=== PATIENT | female | born 1965 | race Caucasian/White ===

== ENCOUNTER 2017-10-17 13:00 | Outpatient (RCR) | payer BC, SELFPAY ==
--- NOTE | 2017-09-26 14:08 | IE_ITS ---
Date: September 26, 2017 Referring: Harry Ware MD M.D. Diagnosis: S/P L Hip scope P.T. Diagnosis: Difficulty walking, difficulty changing positions. 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 She states that for the past 10 years or so she has been limited by back pain, but has recently also developed some severe hip pain over the course of the last 4 years. This has been progressively worse to the point where she was barely able to walk. 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 She received a repair of the acetabular labrum on the L side yesterday and has been told to pursue PT with a strict protocol to follow. She is also awaiting a back surgery that cannot occur until after she loses a few more pounds and gets below 200. Pain Ratin/10 Prior Level of Function: Constant falls with walking limitations. Current Level of Function: She is walking with Lofstrand crutches bilaterally and has mild instability. Previous Treatment: Nothing. Social: She lives in [place] with her . Comorbidities: History of herniated disc, RA. Medications: Gabapentin, oxycodone, an allergy medication and a water medication that she cannot recall the name of. Quality of Life: __X__ Good Standardized Measures: LEFS score: __93%__ OBJECTIVE: Posture: In standing pt demonstrates a significant WB bias onto the RLE. She has bilateral Lofstrand crutches sized appropriately. Gait: Ambulates with a 3 point gait pattern, applying limited WB through the L. She is taken through a gait analysis with an improvement of her walking strategy, as well as reinforcement of how much weight 50% of her body weight is by placing her LLE on a scale and applying 100 lbs of pressure. Palpation: Surgical incision site is covered with a heavy gauze. No notable streaking or redness appearing out from the gauze site. She is directly tender over the incision site. ROM: Measurements for this pt are as follows: Hip flexion R side 110 degrees, 90 L Hip ER 45 R, 15 L Hip IR 35 R, 20 L Hip abduction 45 R, 25 L Strength: Measurements for this pt are as follows: Hip flexion 4+/5 R, 3/5 L Quads 5/5 R, 3+/5 L Hamstrings 5/5 R, 3+/5 L Dorsiflexion 5/5 bilaterally Plantar flexion 5/5 bilaterally Glute medius 4-/5 R, 2+/5 L Neuro: Pt intact to light touch and sensation through LE dermatomes. Motor control appears intact through associated myotomes and pt demonstrates appropriate proprioception and kinesthetic awareness. Special Tests: None at this time due to acuity. Treatment: IE and assessment of functional mobility, as well as training in a formal exercise program. Pt demonstrated verbal acknowledgment and technique demonstration. IE: [id number] Direct treatment time: 45 min Total treatment time: 45 min direct pt care ASSESSMENT: Patient is a 52-year-old female with a history of good physical health, referred for PT services with the diagnosis of being s/p 1 day L side acetabular labrum repair. Patient presents with clinical signs and symptoms consistent with this diagnosis, as demonstrated by the following impairment level findings: 3 point gait pattern with use of Lofstrand crutches and 50% WB through the L, decreased strength L side LE musculature, decreased hip ROM through the L side hip. Impairments are contributing to the following functional limitations:difficulty with gait instability with gait and virtually no involvement in ADLs in the house. Patient is assessed as: __X__ Moderate [id number] complexity, based on the following : History: (list): High BMI, RA, herniated disc in the back. See comorbidities and social history. Examination: (list): Antalgic gait pattern, strength and instability issues through the L side hip, ROM deficits through the L side hip See above for functional limitations and impairments. Presentation: X Evolving Decision-Making: X Moderate complexity 93 % Disability based on LEFS __X__ Patient requires skilled PT intervention to remediate the above functional limitations to return to: __X__ Premorbid level of function Prognosis: __X__ Good as evidence suggests improvement of functional abilities with compliance to a detailed HEP tailored to her diagnosis and following through with PT intervention. STG: __2__ weeks. 1. Pt will be independent in HEP both verbally and with ideal technique demonstration. LTG: __10__ weeks. 1. Pt able to walk up to 1 mile with normalized gait mechanics independent of assistive device. 2. Pt unlimited involvement involvement in all premorbid ADLs and home activities. PLAN: Patient to be seen 2 x per week, for 10 weeks, adjusting frequency of visits per patient symptoms and response to treatment. Treatment to include: X Manual therapy - [id number]: for enhancing muscle extensibility and improving joint arthrokinematics. X Therapeutic exercise - [id number] tactile cues, verbal education and advanced movement correctives for establishing muscle symmetry and return of stability motor control through the core and pelvic girdle, allowing for improving of strength and stability through the LLE as well. X Aquatic therapy program may be utilized for gravity minimized mobility and furthering her conditioning. X U/S and e-stim may be available for pain modulation as necessary. X Neuromuscular re-education: may be advanced with proprioceptive retraining for balance improvements. The pt will be monitored for compliance to HEP and status will be updated accordingly. Plan may be modified as symptoms dictate. Thank you for this referral. Please do not hesitate to contact me with any questions or concerns regarding this patient's plan of care. OFE/raj
--- NOTE | 2017-10-01 14:44 | PTTR_ITS ---
DATE: 10/01/17 SUBJECTIVE: I am feeling a little stiff today through the hip OBJECTIVE: Manual therapy: ([id number]). Patient was placed in supine and was mobilized through the hamstrings with low load long duration holds intermittently. She was guided to about 95 degrees of flexion with good tolerance with oscillations , then mobilized through internal rotation to 20 degrees. Patient was placed in sidelying and mobilized through the quadriceps with hip held to neutral on a fixed pelvis and the knee softly flexed. Patient tolerated light soft tissue work through the quadriceps for tension reduction. Therapeutic procedures ([id number]). * X HEP review: Technique review and corrective modification * X See flow sheet: [] * X Provided skilled instruction in proper exercise performance: [] * X Provided skilled manual cues to facilitate proper muscle recruitment and/ or movement pattern: [] * X Other: Completed corrective activities well. Direct treatment time: 30 minutes of direct patient care.
--- NOTE | 2017-10-03 11:40 | PTTR_ITS ---
DATE: 10/03/17 SUBJECTIVE: I am doing pretty much the same at this point. OBJECTIVE: Manual therapy: ([id number]). Patient was placed in supine and mobilized with gentle stretch of the hamstrings with low load long duration holds. She was then placed through ranging of the hip through hip flexion to 100 degrees and internal rotation to about 30. Patient receiving light to moderate soft tissue mobilization through the posterior lateral thigh musculature and into the quadriceps. Therapeutic procedures ([id number]). * X HEP review: Technique review and corrective modification where appropriate. * X Provided skilled instruction in proper exercise performance: [] * X Provided skilled manual cues to facilitate proper muscle recruitment and/ or movement pattern: [] * X Other: Patient was guided through her intrinsic strengthening program with quad sets, hams sets, gluteal sets, assisted SLR, and early bridging with unweighting all x 10. Nustep was conducted for active assisted mobilization of the hip without resistance. Direct treatment time: 30 minutes of direct patient care.
--- NOTE | 2017-10-07 10:25 | PTTR_ITS ---
DATE: 10/07/17 SUBJECTIVE: I am doing okay but getting sick of these crutches. OBJECTIVE: Manual therapy: ([id number]). Patient was placed in supine and mobilized with gentle hip flexion to her end of tolerable limit but not beyond 95 degrees. She was internally rotated to 25 degrees and external rotation to 10 degrees without tension. Light soft tissue mobilization through the anterior thigh musculature was performed with good tolerance and tension relaxation noted. Therapeutic procedures ([id number]). * X HEP review: Technique review and corrective modification where appropriate. * X Provided skilled instruction in proper exercise performance: [] * X Provided skilled manual cues to facilitate proper muscle recruitment and/ or movement pattern: [] * X Other: Patient was guided through gentle active assisted movement exercises to promote expanded range through the hip within her level of tolerance. Isometric activities included quadriceps, gluteals, hamstrings, Adductors and abductors. Patient tolerated treatment well. Direct treatment time: 30 minutes of direct patient care.
--- NOTE | 2017-10-10 13:25 | PTTR_ITS ---
DATE: 10/10/17 SUBJECTIVE: I am doing okay for the most part. OBJECTIVE: Manual therapy: ([id number]). Patient was placed in supine and mobilized with advancing hip flexion after gentle traction. She was mobilized to 100 degrees which was her level of tolerance today. Internal rotation is still mobilizing beyond 20 degrees and external rotation is mobilized to 20 without tension. Hip abduction mobilized through 30 degrees. Patient was guided through light hip circumduction. Therapeutic procedures ([id number]). * X HEP review: Technique review and corrective modification where appropriate. * X Provided skilled instruction in proper exercise performance: [] * X Provided skilled manual cues to facilitate proper muscle recruitment and/ or movement pattern: [] * X Other: Patient was taken through her isometrics with adduction, quad sets, and gluteal raises. She was also guided through 75% weight bear ambulation with a single loftstrand crutch through the right arm. Patient tolerated progressions in resistance through Nustep as per protocol. Direct treatment time: 30 minutes of direct patient care.
--- NOTE | 2017-10-14 15:27 | PTTR_ITS ---
DATE: 10/14/17 SUBJECTIVE: I am doing okay for the most part although my back is really bothering me today. OBJECTIVE: Therapeutic procedures ([id number]). * X HEP review: Technique review and corrective modification where appropriate. * X Provided skilled instruction in proper exercise performance: [] * X Provided skilled manual cues to facilitate proper muscle recruitment and/ or movement pattern: [] * X Other: Patient completing her exercises starting with ambulation in parallel bars with weight bear assisted walking and side stepping. Mini squats were then performed with good tolerance as well as unweighted hip circles. Patient was then guided through supine mass extensions, bridging with correction , SLR with assist, and SAQ. Nustep performed with therapeutic interval training. Direct treatment time: 30 minutes of direct patient care
--- NOTE | 2017-10-17 13:52 | PTTR_ITS ---
DATE: 10/17/17 SUBJECTIVE: I am doing okay for the most part. OBJECTIVE: Therapeutic procedures ([id number]). * X HEP review: Technique review and corrective modification where appropriate. * X See flow sheet: Patient was instructed in corrective activities * X Provided skilled instruction in proper exercise performance: [] * X Provided skilled manual cues to facilitate proper muscle recruitment and/ or movement pattern: [] * X Other: Patient also mobilized with gentle hip motion through hip flexion to 100 degrees, hip internal rotation to 30 and external rotation to 10 degrees within level of tolerance. Direct treatment time: 30 minutes of direct patient care.
== END 2017-10-17 23:59 | disposition home or self-care (01) ==
LOC: PT 13:00
PROVIDERS: Referring Provider Orthopaedic Surgery; Visit Provider Orthopaedic Surgery
DX: S76.002D Unspecified injury of muscle, fascia and tendon of left hip, subsequent encounter (principal); M51.16 Intervertebral disc disorders with radiculopathy, lumbar region
CPT/HCPCS: 97110; 97140; 97162

== ENCOUNTER 2022-09-20 11:52 | Emergency (ER) | payer MEDICARE, SELFPAY ==
[2022-09-20 12:01] VITALS: BP 148/95; PULSE 64; RESP 18; TEMP 37; O2SAT 99
[2022-09-20 12:13] LABS: Bilirubin Negative (Negative); Blood Negative (Negative); Clarity Clear (Clear); Glucose Negative (Negative); Ketones Negative (Negative); Leukocyte Esterase Negative (Negative); Nitrite Negative (Negative); Specific Gravity <= 1.005 (1.005-1.025); Urobilinogen 0.2 mg/dL (Up to 0.2); pH 5.5 (5-8)
--- NOTE | 2022-09-20 12:15 | DI.CT_ITS ---
Exam(s) CT ABDOMEN PELVIS W EXAM: CT ABDOMEN PELVIS W CLINICAL HISTORY: right sided abd pain. TECHNIQUE: Imaging Protocol: Axial computed tomography images with coronal and sagittal reformatted images were created and reviewed CONTRAST MATERIAL: Intravenous: Omnipaque-350 100cc Oral: None COMPARISON: No exams were available for comparison FINDINGS: VISUALIZED LUNG BASES: No nodules nor pleural effusions evident. There is a moderate size hiatal her monae noted. ABDOMEN: There is no ascites. LIVER: There is a small hypodensity in the most superior aspect of the liver subcapsular left hepatic lobe measuring 7 x 8 mm. This has benign appearance and is probably a subcapsular hemangioma cyst. There are no other focal hepatic findings. No dilated intrahepatic ducts. GALLBLADDER/BILIARY: The gallbladder surgically absent. CBD is not dilated. PANCREAS: No evidence of pancreatic mass nor dilatation of the pancreatic duct. SPLEEN: Spleen is not enlarged. No obvious intrasplenic lesions. Splenic and portal veins are paten t. ADRENALS: There are no significant adrenal masses. KIDNEYS:No cysts evident. No solid renal masses. No calculi nor hydronephrosis.. ABDOMINAL AORTA: Abdominal aorta is not enlarged. LYMPH NODES:There is no retroperitoneal nor paraaortic adenopathy. ABDOMINAL WALL: No evidence of significant anterior abdominal wall nor inguinal hernia. GI: There is no evidence of bowel obstruction, free air, nor abscess. PELVIS: GI: No evidence of appendicitis.There is sigmoid diverticulosis. There is no obvious acute diverticu litis. LYMPH NODES: There is no intrapelvic nor inguinal adenopathy. REPRODUCTIVE: Uterus is surgically absent. There are no abnormal adnexal masses nor free fluid in th e pelvis. URINARY BLADDER: Mildly distended. Otherwise unremarkable. OSSEOUS: No fractures and no significant osseous lesions. IMPRESSION: 1. There is evidence of previous cholecystectomy and hysterectomy. No evidence of bowel obstruction. No free air. No abscess. 2. Moderate size hiatal hernia. 3. There is a small 7 x 8 mm subcapsular lesion in the superior aspect of the left hepatic lobe which is most probably a benign hemangioma. There are no other focal hepatic findings. 4. Extensive sigmoid diverticulosis. No diverticulitis. Report called by myself to ER provider. RADIATION DOSE DELIVERED: 1,457.47mGy.cm Total DLP DATA REPOSITORY: All CT scans at this facility are submitted to the National Radiology Data Registry (NRDR) Dose Index Registry (DIR) with the [employer] ([employer]). RADIATION OPTIMIZATION: All CT scans at this facility use at least one of these dose optimization te chniques: automated exposure control; mA and/or kV adjustment per patient size (includes targeted exa ms where dose is matched to clinical indication); or iterative reconstruction.
[2022-09-20] MEDS: Normal Saline 1,000 ML 1000 ML IV (12:40)
[2022-09-20] MEDS: ACETAMINOPHEN 1,000 MG/100 ML BTL 400 MG IVPB (12:41)
[2022-09-20] MEDS: Ondansetron 4 MG/2 ML VIAL IVP (12:42)
[2022-09-20 12:56] LABS: Abs Immature Grans 0.03 10^3/uL (0.0-0.06); Absolute Basophil Count 0.07 10^3/uL (0.0-0.2); Absolute Eosinophil Count 0.15 10^3/uL (0.0-0.7); Absolute Lymphocyte Count 2.57 10^3/uL (1.2-3.4); Absolute Monocyte Count 0.91 10^3/uL (0.1-0.8); Absolute Neutrophil Count 4.14 10^3/uL (1.2-6.7); Basophils % 0.9; Eosinophils % 1.9; HCT 48.5 % (36.0-46.0); HGB 15.8 g/dL (11.2-15.7); Immature Grans % 0.4; Lymphocytes % 32.7; MCH 29.6 pg (27.0-33.0); MCHC 32.6 % (32.0-36.0); MCV 91 fL (80-95); MPV 10.8 fL (8.0-11.0); Monocytes % 11.6; Neutrophils % 52.5; Platelet Count 297 10^3/uL (130-400); RBC 5.34 10^6/uL (3.93-5.22); RDW 12.5 % (11.7-14.6); RDW-SD 41.3 fL; WBC 7.87 10^3/uL (4.4-10.8)
--- NOTE | 2022-09-20 13:07 | W.ED.GENAD ---
Discharge Plan Disposition Patient Disposition: Home Discharge Details Clinical Impression: Acute abdominal pain in right flank Primary Care Provider: Norma Avilez ED Provider: Preet Ayala Discharge Instructions Instructions: Flank Pain (ED) Additional Instructions: At this time your emergency work-up showed no emergent findings. You may continue [id number] medications as discussed and stay well-hydrated. If you have any new or significant worsening of symptoms feel free to return the emergency department for reassessment otherwise follow-up with primary care provider if not improving in the next week. Referrals: Norma Avilez [Primary Care Provider] - Discharge Data Discharge Date/Time-TO BE ENTERED AT DEPARTURE: 09/20/22 15:42 Medical Decision Making Patient presenting to the emergency department for chief complaint of right flank and back pain. Reports 5 days ago she started having some back discomfort that mostly seem to correlate with bowel movements. Patient has since developed some urinary urgency but of note with urination patient does state some improvement of pain. Pain usually worsens by the end of the day and is slightly improved in the morning but has been progressively worsening over the past 5 days. Patient has been using NSAIDs to help with discomfort. Physical exam shows right upper and lower quadrant tenderness, normal active bowel sounds, right CVA tenderness, otherwise nondiagnostic physical exam. Patient does report history of hysterectomy, oophorectomy, not sure if she still has her gallbladder or not. We will plan on checking patient's labs and CT imaging as there is multiple potential differential diagnosis to include kidney stone, hydronephrosis, cholangitis given that patient is unsure if she has her gallbladder, or appendicitis. Pending results we will give patient IV acetaminophen fluids and nausea medication. Reviewed labs and patient does have elevated hemoglobin of 15.8 and slightly high monocytes otherwise nondiagnostic CBC, CMP shows low AST, otherwise nondiagnostic CMP, lipase slightly elevated at 2.5, normal lipase, urinalysis is unremarkable. Reviewed CT imaging and radiologist interpretation showing some diverticulosis without diverticulitis, benign-appearing hepatic cyst otherwise nonemergent CT imaging. Patient reassessed and no significant worsening of symptoms. Will discharge patient to follow-up with primary care provider or return for new or worsening symptoms. Did note some potential stool noted on CT scan that could be causing some symptoms. Discussed very gentle laxative [id number] and staying hydrated along with monitoring symptoms. After discussion of diagnosis and plan of care patient has no further needs, questions, or concerns and states clear understanding to return to the emergency department for any worsening symptoms. This documentation was generated using [employer] dictation system, please disregard any oddities of phrase or misspellings. Imaging Data Radiologic Study: Imaging: CT Scan Radiologist's impression: Exam(s) CT ABDOMEN PELVIS W EXAM: CT ABDOMEN PELVIS W CLINICAL HISTORY: right sided abd pain. TECHNIQUE: Imaging Protocol: Axial computed tomography images with coronal and sagittal reformatted images were created and reviewed CONTRAST MATERIAL: Intravenous: Omnipaque-350 100cc Oral: None COMPARISON: No exams were available for comparison FINDINGS: VISUALIZED LUNG BASES: No nodules nor pleural effusions evident. There is a moderate size hiatal hernia noted. ABDOMEN: There is no ascites. LIVER: There is a small hypodensity in the most superior aspect of the liver subcapsular left hepatic lobe measuring 7 x 8 mm. This has benign appearance and is probably a subcapsular hemangioma cyst. There are no other focal hepatic findings. No dilated intrahepatic ducts. GALLBLADDER/BILIARY: The gallbladder surgically absent. CBD is not dilated. PANCREAS: No evidence of pancreatic mass nor dilatation of the pancreatic duct. SPLEEN: Spleen is not enlarged. No obvious intrasplenic lesions. Splenic and portal veins are patent. ADRENALS: There are no significant adrenal masses. KIDNEYS:No cysts evident. No solid renal masses. No calculi nor hydronephrosis.. ABDOMINAL AORTA: Abdominal aorta is not enlarged. LYMPH NODES:There is no retroperitoneal nor paraaortic adenopathy. ABDOMINAL WALL: No evidence of significant anterior abdominal wall nor inguinal hernia. GI: There is no evidence of bowel obstruction, free air, nor abscess. PELVIS: GI: No evidence of appendicitis.There is sigmoid diverticulosis. There is no obvious acute diverticulitis. LYMPH NODES: There is no intrapelvic nor inguinal adenopathy. REPRODUCTIVE: Uterus is surgically absent. There are no abnormal adnexal masses nor free fluid in the pelvis. URINARY BLADDER: Mildly distended. Otherwise unremarkable. OSSEOUS: No fractures and no significant osseous lesions. IMPRESSION: 1. There is evidence of previous cholecystectomy and hysterectomy. No evidence of bowel obstruction. No free air. No abscess. 2. Moderate size hiatal hernia. 3. There is a small 7 x 8 mm subcapsular lesion in the superior aspect of the left hepatic lobe which is most probably a benign hemangioma. There are no other focal hepatic findings. 4. Extensive sigmoid diverticulosis. No diverticulitis. HPI General Mode of arrival: ambulatory. Date/Time Provider Initiated Documentation: 09/20/22 12:01. Limitations to Documentation: no limitations. Information obtained by: patient and RN notes reviewed. History of Present Illness 57 year old F presents to the emergency department with the chief complaint of Right flank and abdominal pain, described as moderate, Quality is described as aching, and is localized to the abdomen. Patient reports radiation to back. Patient started experiencing this day(s) (5) and it has been constant. No relieving factors improve symptom(s), Other factors that worsen symptoms . Patient did receive the following treatments prior to arrival, NSAID Related Data Allergies Allergy/AdvReac Type Severity Reaction Status Date / Time morphine Allergy Severe Anaphylaxis Unverified 09/20/22 12:12 Sulfa (Sulfonamide Allergy Severe Anaphylaxis Unverified 09/20/22 12:12 Antibiotics) General Stated Complaint: FlankPain IVELISSE: 3 Review of Systems Constitutional Constitutional: Denies chills, Denies fever(s), Reports malaise and Denies poor appetite Cardiovascular Cardiovascular: Denies chest pain and Denies dyspnea Respiratory Respiratory: Denies cough and Denies dyspnea Gastrointestinal Gastrointestinal: Reports as per HPI, Reports abdominal pain, Denies melena, Denies change in bowel habits, Denies constipation, Denies diarrhea, Reports nausea and Denies vomiting Genitourinary Genitourinary: Denies hematuria, Denies dysuria and Reports urinary urgency Musculoskeletal Musculoskeletal: Reports back pain Integumentary/Breasts Skin/Breast: Denies rash PFSH All Active Problems (Updated 09/20/22 @ 15:24 by Preet Ayala NP) Acute abdominal pain in right flank (Acute) Social History Smoking risk assessment performed?: No Exam Const General: cooperative Orientation: alert, awake and oriented x3 Resp Effort & Inspection: normal respiratory effort and able to speak in complete sentences Auscultation: clear to auscultation bilaterally Cardio Rate: regular rate Rhythm: regular rhythm Heart Sounds: S1 normal and S2 normal GI Inspection: normal to inspection Palpation: soft, no hepatosplenomegaly, not firm, no guarding, no masses, no pulsatile masses, not rigid, no splenomegaly and tender in the RLQ and in the RUQ Auscultation: normal bowel sounds General: CVA tenderness on the right Back/Spine/Pelvis Back: CVA tenderness Neuro General: patient alert, patient awake, patient oriented x3, gait normal and moves all extremities Course Vital Signs Vital signs: Vital Signs Temperature 37.0 C 09/20/22 12:01 Pulse 64 09/20/22 12:01 Respiratory Rate 18 09/20/22 12:01 Blood Pressure 148/95 H 09/20/22 12:01 Pulse Oximetry 99 09/20/22 12:01 Temperature 37.0 C 09/20/22 12:01 Temperature Source Skin 09/20/22 12:01 Pulse 64 09/20/22 12:01 Respiratory Rate 18 09/20/22 12:01 Respiratory Effort Normal 09/20/22 12:10 Blood Pressure 148/95 H 09/20/22 12:01 Blood Pressure Position Sitting 09/20/22 12:01 Pulse Oximetry 99 09/20/22 12:01 Oxygen Delivery Method Room Air 09/20/22 12:01 Oxygen Flow Rate 0 09/20/22 12:01 Pain Level 10 09/20/22 12:01 Lab/Test Results Lab/Test Results: Laboratory Tests Range/Units 09/20/22 09/20/22 12:00 12:36 WBC (4.4-10.8) 10^3/uL 7.87 RBC (3.93-5.22) 10^6/uL 5.34 H Hgb (11.2-15.7) g/dL 15.8 H Hct (36.0-46.0) % 48.5 H MCV (80-95) fL 91 MCH (27.0-33.0) pg 29.6 MCHC (32.0-36.0) % 32.6 RDW (11.7-14.6) % 12.5 Plt Count (130-400) 10^3/uL 297 MPV (8.0-11.0) fL 10.8 Immature Gran % 0.4 Neutrophils % 52.5 Lymphocytes % 32.7 Monocytes % 11.6 Eosinophils % 1.9 Basophils % 0.9 Nucleated RBC % (0.0-0.3) % 0.0 Absolute Neutrophils (1.2-6.7) 10^3/uL 4.14 Absolute Lymphocytes (1.2-3.4) 10^3/uL 2.57 Absolute Monocytes (0.1-0.8) 10^3/uL 0.91 H Absolute Eosinophils (0.0-0.7) 10^3/uL 0.15 Absolute Basophils (0.0-0.2) 10^3/uL 0.07 Urine Color (Yellow) Yellow Urine Clarity (Clear) Clear Urine pH (5-8) 5.5 Ur Specific [place] (1.005-1.025) <= 1.005 Urine Protein (Negative) mg/dL Negative Urine Ketones (Negative) mg/dL Negative Urine Blood (Negative) Negative Urine Nitrite (Negative) Negative Urine Bilirubin (Negative) Negative Urine Urobilinogen (Up to 0.2) mg/dL 0.2 Ur Leukocyte Esterase (Negative) Negative Urine Glucose (Negative) mg/dL Negative
[2022-09-20 13:09] LABS: Lipase 44 U/L (16-77)
[2022-09-20 13:15] LABS: ALT 32 U/L (14-59); AST 13 U/L (15-37); Albumin 3.9 g/dL (3.4-5.0); Alkaline Phosphatase 83 U/L (46-116); Anion Gap 5.1 mmol/L (3-11); BUN 15 mg/dL (7-18); Bilirubin, Total 0.5 mg/dL (0.2-1.0); CO2 30.9 mmol/L (21.0-32.0); CREATININE 0.8 mg/dL (0.55-1.02); Calcium 9.4 mg/dL (8.5-10.1); Chloride 105 mmol/L (98-107); Estimated GFR 84.82 (mL/min/1.73m2); Glucose 85 mg/dL (74-106); Magnesium 2.5 mg/dL (1.8-2.4); Potassium 3.6 mmol/L (3.5-5.1); Sodium 141 mmol/L (136-145); Total Protein 7.4 g/dL (6.4-8.2)
[2022-09-20] MEDS: Normal Saline - Diluent 50 ML VIAL IJ (13:54)
[2022-09-20] MEDS: Omnipaque 350 MG/ML 500 ML BTL-Imaging package 100 ML IJ (13:55)
[2022-09-20] MEDS: Normal Saline Flush 10 ML SYR IVP (13:56)
== END 2022-09-20 15:42 | disposition home or self-care (01) ==
PROVIDERS: Emergency Medicine; Emergency Provider Nurse Practitioner Family; PCP Nurse Practitioner Family
DX: R10.9 Unspecified abdominal pain (principal); K76.89 Other specified diseases of liver
CPT/HCPCS: 80053; 83690; 96361; 96365; 96375; 99285; 74177; 81003; 83735; 85025; 99284; J0131; J2405

== ENCOUNTER 2023-03-25 15:51 | Outpatient (CLI) | payer MEDICARE, SELFPAY ==
[2023-03-25 14:24] LABS: Hemoglobin A1C 5.8 % (<5.7)
[2023-03-25 14:34] LABS: Glucose 104 mg/dL (74-106)
--- OUTSIDE RECORDS SUMMARY | 2023-03-25 15:53 | XMS_ITS | CCD ---
Author Name Unknown Address [address] [place] [address] [id number] Organization Unknown Address [address] [place] [address] [id number] Care Team Providers Care Market Development Specialist Name Role Phone JODI HANSEN Attending Physician [phone] JODI HANSEN Rounding (Secondary) Physician [phone] Vital Signs Unknown or Not Available. Allergies Unknown or Not Available. Procedures Unknown or Not Available. History of Immunizations Unknown or Not Available. Problems Unknown or Not Available. Results Unknown or Not Available. Active Medications Unknown or Not Available. Medications Administered During Visit Unknown or Not Available. Encounters Encounter Diagnosis Diagnosis Code Start Date Incomplete rotator cuff tear or rupture of right shoulder, not specified as traumatic [id number] 06/27/2021 Social History Unknown or Not Available. Patient Decision Aids Unknown or Not Available. Discharge Instructions You were admitted to [facility] on 06/27/2021 14:16 with a principal diagnosis of Incomplete rotator cuff tear or rupture of right shoulder, not specified as traumatic You were discharged from [facility] on 06/27/2021 00:00 Should you have any questions prior to discharge, please contact a member of your healthcare team. If you have left the hospital and have any questions, please contact your primary care physician. Chief Complaint and Reason For Visit Unknown or Not Available. Function Status Unknown or Not Available. Plan of Care Unknown or Not Available. Referral/Transition of Care Unknown or Not Available.
--- OUTSIDE RECORDS SUMMARY | 2023-03-25 15:53 | XMS_ITS | CCD ---
Author Name Unknown Address [address] [place] [address] [id number] Organization Unknown Address [address] [place] [address] [id number] Care Team Providers Care Dish Cloth Inspector Name Role Phone JODI HANSEN Attending Physician [phone] JODI HANSEN Rounding (Secondary) Physician [phone] Vital Signs Unknown or Not Available. Allergies [...] of right shoulder, not specified as traumatic [id number] 08/06/2021 Social History Unknown or Not Available. Patient Decision Aids Unknown or Not Available. Discharge Instructions You were admitted to [facility] on 08/06/2021 07:32 with a principal diagnosis of Incomplete rotator cuff tear or rupture of right shoulder, not specified as traumatic You were discharged from [facility] on 08/06/2021 00:00 Should you have any questions prior [...]
== END 2023-03-25 15:52 | disposition home or self-care (01) ==
LOC: LBO 15:52
PROVIDERS: PCP Nurse Practitioner Family; Visit Provider Optometrist
DX: R73.09 Other abnormal glucose (principal); H53.8 Other visual disturbances
CPT/HCPCS: 36415; 82947; 83036